=== PATIENT | female | born 1935 | race Caucasian/White ===

== ENCOUNTER 2017-01-31 10:16 | Inpatient (IN) | payer MEDICARE ==
[2017-01-20 11:51] VITALS: BP 134/73
[~2017-01-31] VITALS: Ht 162.6 cm; Wt 54.0 kg
[~2017-01-31 10:16] MED LIST: ALPR-475 PO; ALPR0.25 PO; ALPR0.254 PO; AMOX-291 PO; APIX5TAB PO; BISA-49 PO; CALC-316 PO; CEFAZOLIN 1,000 MG ONE; CETI5TAB3 PO; CHOL400T2 PO; CLON0.1T PO; ENOX40SY4 SQ; EPHEDRINE 50 MG/ML, 1ML ONE; FENT1PAT74 TD; HERBAL LAXATIVE; HORSE TAIL; HYDR-3138 PO; LEVA15HF2 INH; LEVO25TA4 PO; LEVO50TA PO; LISI-170 PO; MONT10TA6 PO; MULT-6 PO; OMEP20TA62 PO; ONDANSETRON 2MG/ML, 2ML ONE; OXYB10TA PO; PHEN100T90 PO; PHENYLEPHRINE 10 MG/ML ONE; POTA20TA14 PO; PROPOFOL 10 MG/ML, 20ML ONE; PROPOFOL 10 MG/ML, 50ML ONE; SENN1TAB7 PO; VITA1CAP PO; [UNRECOGNIZED DRUG - OTHER]
[2017-01-31] MEDS ORDERED: LACTATED RINGERS 1,000 ML IV SCH ×2 (12:15→13:05)
[2017-01-31] MEDS ORDERED: VANCOMYCIN PMX 1GM/200ML 200 ML IV ONE (12:30)
[2017-01-31] MEDS ORDERED: VANCOMYCIN PER PHARMACY MC PRN (12:30)
[2017-01-31] MEDS ORDERED: MACROBID PO (13:09)
[2017-01-31] MEDS ORDERED: FENTANYL PF 250 MCG/5ML ONE (13:10)
[2017-01-31] MEDS ORDERED: OxyconTIN ER 10 MG TAB.ER ONE (13:24)
[2017-01-31] MEDS ORDERED: OxyconTIN ER 10 MG TAB.ER PO ONE (13:30)
[2017-01-31] MEDS ORDERED: LIDOCAINE 1%, 2ML SQ PRN (13:30)
[2017-01-31] MEDS ORDERED: SODIUM CHLORIDE 0.9% 50 ML ONE (14:23)
[2017-01-31] MEDS ORDERED: TRANEXAMIC ACID 100 MG/ML, 10ML ONE ×3 (14:23)
[2017-01-31] MEDS ORDERED: KETOROLAC 60 MG/2 ML ONE (14:23)
[2017-01-31] MEDS ORDERED: ROPIvacaine/PF 0.2%, 20 ML ONE (14:23)
[2017-01-31] MEDS ORDERED: BACITRACIN 50,000 UNIT ONE (14:24)
[2017-01-31] MEDS: D5%-0.45% NACL 1,000 ML IV SCH (17:05)
[2017-01-31] MEDS ORDERED: PROMETHAZINE 25 MG/ML, 1ML IM PRN (17:30)
[2017-01-31] MEDS ORDERED: ZOLPIDEM 5MG TABLET PO PRN (17:30)
[2017-01-31] MEDS ORDERED: PROMETHAZINE 12.5 MG SUPP PR PRN (17:30)
[2017-01-31] MEDS ORDERED: DIAZEPAM 5 MG TABLET PO PRN (17:30)
[2017-01-31] MEDS ORDERED: DIPHENHYDRAMINE 50 MG CAPSULE PO PRN (17:30)
[2017-01-31] MEDS ORDERED: BISACODYL 10 MG SUPP PR PRN (17:30)
[2017-01-31] MEDS ORDERED: OXYcodone IR 5MG TABLET PO PRN (17:30)
[2017-01-31] MEDS ORDERED: MAGNESIUM HYDROXIDE 8%, 30ML UDC PO PRN (17:30)
[2017-01-31] MEDS ORDERED: ONDANSETRON 4 MG TABLET PO PRN (17:30)
[2017-01-31] MEDS ORDERED: SENNA/DOCUSATE TABLET PO PRN (17:30)
[2017-01-31] MEDS ORDERED: HYDROmorphone 1 MG/ML, 1ML IV PRN (17:30)
[2017-01-31] MEDS ORDERED: FENTANYL PF 100 MCG/2ML IV PRN (17:30)
[2017-01-31] MEDS ORDERED: ONDANSETRON 2MG/ML, 2ML IV PRN (17:30)
[2017-01-31] MEDS ORDERED: PROMETHAZINE 25 MG/ML, 1ML IV PRN (17:30)
[2017-01-31] MEDS ORDERED: HYDROcodone/APAP 10/325 MG TABLET PO PRN (17:30)
[2017-01-31] MEDS ORDERED: morphine SULFATE 10 MG/ML, 1ML IV PRN (17:30)
[2017-01-31] MEDS ORDERED: ACETAMINOPHEN 325 MG TABLET PO PRN (17:30)
[2017-01-31] MEDS ORDERED: OXYcodone 5 MG/5 ML ORAL.SOL UDC ONE ×2 (17:37→18:14)
[2017-01-31] MEDS: OXYcodone 5 MG/5 ML ORAL.SOL UDC PO PRN ×2 (17:38→18:17)
[2017-01-31] MEDS: [UNRECOGNIZED DRUG - REMARK] MC SCH (19:30)
[2017-01-31 19:51] VITALS: BP 147/72
[2017-01-31] MEDS: ACETAMINOPHEN 650 MG/20.3 ML UDC PO SCH (20:18)
[2017-01-31] MEDS: TAMSULOSIN 0.4 MG CAP.ER.24H PO SCH (20:19)
[2017-01-31] MEDS: OXYcodone IR 5MG TABLET PO SCH (20:20)
[2017-01-31] MEDS: DOCUSATE 100 MG CAPSULE PO SCH (20:20)
[2017-01-31] MEDS: CEFAZOLIN PMX 1GM/50ML 50 ML IVPB SCH (23:06)
[2017-02-01] VITALS: BP 116/63
[2017-02-01] MEDS: OXYcodone IR 5MG TABLET PO SCH ×6 (00:30→20:30)
[2017-02-01] MEDS: D5%-0.45% NACL 1,000 ML IV SCH ×3 (00:39→16:40)
[2017-02-01] MEDS: ACETAMINOPHEN 650 MG/20.3 ML UDC PO SCH ×6 (01:34→20:30)
[2017-02-01 03:04] VITALS: BP 115/58
[2017-02-01] MEDS: [UNRECOGNIZED DRUG - REMARK] MC SCH ×3 (03:18→19:19)
[2017-02-01] MEDS: LEVOTHYROXINE 75 MCG TABLET PO SCH (04:52)
[2017-02-01] MEDS ORDERED: DEXAMETHASONE 4 MG/ML, 1ML IVPush SCH (06:00)
[2017-02-01] MEDS: CEFAZOLIN PMX 1GM/50ML 50 ML IVPB SCH (06:34)
[2017-02-01 06:48] VITALS: BP 118/55
[2017-02-01] MEDS: APIXABAN 5 MG TABLET PO SCH ×2 (09:27→20:40)
[2017-02-01] MEDS: TAMSULOSIN 0.4 MG CAP.ER.24H PO SCH (09:28)
[2017-02-01] MEDS: LISINOPRIL 20 MG TABLET PO SCH (09:28)
[2017-02-01] MEDS: MULTIVITAMINS/MINERALS TABLET PO SCH (09:28)
[2017-02-01] MEDS: OXYBUTYNIN CHLORIDE 5 MG TABLET PO SCH (09:29)
[2017-02-01] MEDS: DOCUSATE 100 MG CAPSULE PO SCH ×2 (09:29→20:40)
[2017-02-01 12:44] VITALS: BP 104/50
[2017-02-01] MEDS ORDERED: VANCOMYCIN PMX 1GM/200ML 200 ML IVPB SCH (14:00)
[2017-02-01 20:31] VITALS: BP 141/74
[2017-02-02] MEDS: ALUMINUM/MAG/SIMETHICONE 30 ML UDC PO PRN ×3 (00:14→12:31)
[2017-02-02] MEDS: OXYcodone IR 5MG TABLET PO SCH ×6 (00:30→21:24)
[2017-02-02] MEDS: ACETAMINOPHEN 650 MG/20.3 ML UDC PO SCH ×6 (00:30→21:24)
[2017-02-02] MEDS: D5%-0.45% NACL 1,000 ML IV SCH ×4 (00:31→21:25)
[2017-02-02 02:40] VITALS: BP 130/64
[2017-02-02] MEDS: [UNRECOGNIZED DRUG - REMARK] MC SCH ×4 (03:30→21:26)
[2017-02-02 05:24] LABS: HEMOGLOBIN 8.9 g/dL (11.7-16.4)
[2017-02-02] MEDS: LEVOTHYROXINE 75 MCG TABLET PO SCH (05:58)
[2017-02-02 07:40] VITALS: BP 110/55
[2017-02-02] MEDS: LISINOPRIL 20 MG TABLET PO SCH (09:00)
[2017-02-02] MEDS: APIXABAN 5 MG TABLET PO SCH ×2 (09:04→21:24)
[2017-02-02] MEDS: DOCUSATE 100 MG CAPSULE PO SCH ×2 (09:04→21:24)
[2017-02-02] MEDS: TAMSULOSIN 0.4 MG CAP.ER.24H PO SCH (09:04)
[2017-02-02] MEDS: MULTIVITAMINS/MINERALS TABLET PO SCH (09:04)
[2017-02-02] MEDS: OXYBUTYNIN CHLORIDE 5 MG TABLET PO SCH (09:04)
[2017-02-02 13:32] VITALS: BP 104/58
[2017-02-02] MEDS: PANTOPRAZOLE 20MG TABLET PO SCH (18:05)
[2017-02-02 20:06] VITALS: BP 134/60
[2017-02-03] MEDS: ACETAMINOPHEN 650 MG/20.3 ML UDC PO SCH ×3 (01:56→10:55)
[2017-02-03] MEDS: OXYcodone IR 5MG TABLET PO SCH ×3 (01:57→10:55)
[2017-02-03 02:02] VITALS: BP 124/65
[2017-02-03] MEDS: LEVOTHYROXINE 75 MCG TABLET PO SCH (05:58)
[2017-02-03 08:14] VITALS: BP 117/66
[2017-02-03] MEDS ORDERED: DOCU-30 PO (08:15)
[2017-02-03 08:46] LABS: HEMOGLOBIN 8.7 g/dL (11.7-16.4)
[2017-02-03] MEDS: TAMSULOSIN 0.4 MG CAP.ER.24H PO SCH (09:00)
[2017-02-03] MEDS: DOCUSATE 100 MG CAPSULE PO SCH (09:00)
[2017-02-03] MEDS: D5%-0.45% NACL 1,000 ML IV SCH (09:05)
[2017-02-03] MEDS: PANTOPRAZOLE 20MG TABLET PO SCH (09:15)
[2017-02-03] MEDS: APIXABAN 5 MG TABLET PO SCH (09:15)
[2017-02-03] MEDS: LISINOPRIL 20 MG TABLET PO SCH (09:15)
[2017-02-03] MEDS: OXYBUTYNIN CHLORIDE 5 MG TABLET PO SCH (09:15)
[2017-02-03] MEDS: MULTIVITAMINS/MINERALS TABLET PO SCH (09:15)
[2017-02-03] MEDS: [UNRECOGNIZED DRUG - REMARK] MC SCH (10:55)
== END 2017-02-03 13:38 | DRG 469 ==
LOC: ORIP 11:57 → 4NOR 18:35
PROVIDERS: ADMIT Orthopaedic Surgery; ATTEND Orthopaedic Surgery
PROC: 0SR904A Replacement of Right Hip Joint with Ceramic on Polyethylene Synthetic Substitute, Uncemented, Open Approach (ICD-10-PCS; 2017-01-31)
PROC: 0SPB04Z Removal of Internal Fixation Device from Left Hip Joint, Open Approach (ICD-10-PCS; principal; 2017-01-31 14:15)
DX: T84.89XA Other specified complication of internal orthopedic prosthetic devices, implants and grafts, initial encounter (principal); S72.001A Fracture of unspecified part of neck of right femur, initial encounter for closed fracture; M87.351 Other secondary osteonecrosis, right femur; Z88.8 Allergy status to other drugs, medicaments and biological substances; Z88.1 Allergy status to other antibiotic agents; Z91.041 Radiographic dye allergy status
CPT/HCPCS: 36415; 72170; 85014; 85018; 86850; 86900; C1713; J0690; J1100; J1170; J1885; J2405; J2704; J2795; J3010; J3370; C1776; J2370; J7120